=== PATIENT | male | born 1965 | race Caucasian/White ===

== ENCOUNTER → 2023-04-27 08:55 | Outpatient (CLI) | payer OTHER, SELFPAY ==
--- NOTE | ~2023-04-27 | MR_ITS ---
MRI of the right shoulder Technique: Axial proton-density fat-sat images, coronal proton density fat-sat and T2 fat-sat images, and sagittal T1-weighted and T2 fat-sat images were acquired. Clinical History: Pain Findings: There is severe AC joint degenerative change. Coracoclavicular, coracoacromial, and coracoh umeral ligaments appear intact. There is probable complete full-thickness tearing of the supraspinatus tendon. There is probable part ial thickness tearing at the articular side of the infraspinatus tendon which is diffusely thinned. S ubscapularis tendon demonstrates partial thickness articular surface tearing and thinning at the mid and distal portions. Tendon of the long head of the biceps demonstrates medial dislocation from the b icipital groove. There is tendinosis of its intra-articular portion. No definite labral tear identified. Inferior glenohumeral ligament is intact. Small glenohumeral joint effusion is present. No degenerati ve change of the glenohumeral joint. No muscle atrophy or edema evident. Impression: Complete, full-thickness tear of the supraspinatus tendon. Extensive partial-thickness articular surface tearing of the infraspinatus tendon which is diffusely thinned. Partial thickness articular surface tearing of the subscapularis tendon at its mid and distal portion s. Medial dislocation of the biceps tendon from the bicipital groove. Severe AC joint degenerative change. Reviewed, dictated and finalized at [facility]. Impression: Complete, full-thickness tear of the supraspinatus tendon. Extensive partial-thickness articular surface tearing of the infraspinatus tend on which is diffusely thinned. Partial thickness articular surface tearing of the subscapularis tendon at its mid and distal portions. Medial dislocation of the biceps tendon from the bicipital groove. Severe AC joint degenerative change.
== END ==
PROVIDERS: PCP Family Medicine; Visit Provider Orthopaedic Surgery
DX: M75.121 Complete rotator cuff tear or rupture of right shoulder, not specified as traumatic (principal); M19.011 Primary osteoarthritis, right shoulder
CPT/HCPCS: 73221